=== PATIENT | female | born 1995 | race Caucasian/White ===

== ENCOUNTER 2024-01-13 10:18 | Day surgery (SDC) | payer BC ==
[2024-01-13] MEDS ORDERED: Acetaminophen 500 MG TAB ONE (10:26)
[2024-01-13] MEDS: Acetaminophen 500 MG TAB PO SCH (10:28)
[2024-01-13] MEDS: Iron Sucrose Complex 500 MG in Sodium Chloride 0.9% 250 ML 250 ML IVPB SCH (10:39)
[2024-01-13 15:38] VITALS: BP 100/67; TEMP 97.7
== END 2024-01-13 15:25 | disposition short-term general hospital (02) ==
LOC: ONC/OP 10:18
PROVIDERS: ATTEND Advanced Practice Midwife
DX: O22.42 Hemorrhoids in pregnancy, second trimester (principal); Z22.330 Carrier of Group B streptococcus; Z3A.27 27 weeks gestation of pregnancy; Z79.899 Other long term (current) drug therapy
CPT/HCPCS: 96365; 96366; 99212; G0463; J1756; J7050